=== PATIENT | female | born 1995 | race Hispanic/Latino ===

== ENCOUNTER 2019-01-06 11:47 | Emergency (ER) | payer MEDICAID ==
[2019-01-06 11:47] VITALS: BMI 21.2
[2019-01-06] MEDS ORDERED: Sodium Chloride 0.9% 1,000 ML IV STA (12:41)
[2019-01-06 13:00] LABS: SQUAMOUS EPITHIAL 1 /hpf (0-5); URINE BILIRUBIN NEGATIVE (NEGATIVE); URINE BLOOD LARGE (NEGATIVE); URINE CLARITY CLOUDY (Clear); URINE COLOR AMBER (YELLOW); URINE GLUCOSE (UA) NEG (NEGATIVE); URINE LEUKOCYTE ESTERASE SMALL Leu/uL (Negative); URINE PROTEIN 100 mg/dL (NEGATIVE); URINE UROBILINOGEN 0.2-1.0 mg/dL (0.2-1.0)
[2019-01-06 13:37] LABS: BASO % 0.2 % (0.0-2.0); EOS % 0.1 % (0.0-4.0); LYMPH # 0.2 K/uL (1.0-4.3); LYMPH % 1.9 % (20.0-40.0); MEAN CELL VOLUME 90.6 fl (81.0-99.0); MEAN CORPUSCULAR HGB CONC 33.1 g/dL (33.0-37.0); MONO # 0.6 K/uL (0.0-0.8); MONO % 4.8 % (0.0-10.0); NEUT # 10.9 K/uL (1.8-7.0); PLATELET COUNT 220 K/uL (130-400); WHITE BLOOD COUNT 11.7 K/uL (4.8-10.8)
[2019-01-06 13:52] LABS: ALB/GLOB RATIO 1.7 (1.0-2.1); ALBUMIN 4.2 g/dL (3.5-5.0); ALT/SGPT 30 U/L (9-52); AST/SGOT 22 U/L (14-36); BLOOD UREA NITROGEN 15 mg/dl (7-17); CALCIUM 8.9 mg/dL (8.4-10.2); GFR NON-AFRICAN AMERICAN > 60
[2019-01-06 14:14] LABS: BANDS 1 % (0-2); LARGE PLATELETS PRESENT; LYMPHOCYTE 5 % (20-50); MONOCYTE 4 % (0-10); NEUTROPHIL 90 % (42-75); PLATELET CLUMPS PRESENT; PLATELET ESTIMATE NORMAL (NORMAL); TOTAL CELLS COUNTED 100
--- NOTE | 2019-01-06 14:14 | ED PDOC ---
HPI: SOB/CHF/COPD Time Seen by Provider: 01/06/19 12:12 Chief Complaint (Nursing): Shortness Of Breath Chief Complaint (Provider): Shortness of breath History Per: Patient History/Exam Limitations: no limitations Additional Complaint(s): 23yo female, otherwise well, comes to ER stating at work today, she began to feel fait and shortly after developed shortness of breath, and weakness. She denies any loss of consciounsess and states was able to go to the bathroom and had an episode of large, non-bloody, watery diarrhea. This all occurred at 10am, and since then she has had improvement in her symptoms. No chest pain, shortness of breath or vomiting; patient does report nausea at this time. Of note, pt states her menstruation began today. Past Medical History Reviewed: Historical Data, Nursing Documentation, Vital Signs Vital Signs: Last Vital Signs Temp 98 F 01/06/19 11:56 Pulse 107 H 01/06/19 11:56 Resp 16 01/06/19 11:56 BP 104/68 01/06/19 11:56 Pulse Ox 99 01/06/19 11:56 - Medical History PMH: Anemia, Anxiety, Bipolar Disorder, Depression Denies: Diabetes, Hepatitis, HIV, HTN, Chronic Kidney Disease, Seizures, Sexually Transmitted Disease - Surgical History Surgical History: No Surg Hx - Family History Family History: States: No Known Family Hx - Home Medications Home Medications: Ambulatory Orders Medication Instructions Recorded Azithromycin [Zithromax] 250 mg PO DAILY #4 tab 12/02/18 clonazePAM [Klonopin] 1 mg PO DAILY 12/02/18 - Allergies Allergies/Adverse Reactions: Allergies Allergy/AdvReac Type Severity Reaction Status Date / Time No Known Allergies Allergy Verified 01/06/19 11:55 Review of Systems ROS Statement: Except As Marked, All Systems Reviewed And Found Negative Respiratory: Positive for: Shortness of Breath Gastrointestinal: Positive for: Nausea, Diarrhea (x 1) Physical Exam - Reviewed Nursing Documentation Reviewed: Yes Vital Signs Reviewed: Yes - Physical Exam Appears: Positive for: Non-toxic, No Acute Distress Head Exam: Positive for: ATRAUMATIC, NORMAL INSPECTION, NORMOCEPHALIC Skin: Positive for: Normal Color, Warm, Dry. Negative for: Pallor Eye Exam: Positive for: EOMI, PERRL ENT: Positive for: Other (dry mucus membranes) Neck: Positive for: Normal, Painless ROM, Supple Cardiovascular/Chest: Positive for: Regular Rate, Rhythm. Negative for: T achycardia Respiratory: Positive for: Normal Breath Sounds. Negative for: Respiratory Distress Neurological/Psych: Positive for: Awake, Alert, Normal Tone - Laboratory Results Result Diagrams: 01/06/19 13:20 01/06/19 13:20 Lab Results: Total Bilirubin 0.6 mg/dl (0.2-1.3) 01/06/19 13:20 AST 22 U/L (14-36) 01/06/19 13:20 ALT 30 U/L (9-52) 01/06/19 13:20 Alkaline Phosphatase 51 U/L (38-126) 01/06/19 13:20 Total Protein 6.7 G/DL (6.3-8.2) 01/06/19 13:20 Albumin 4.2 g/dL (3.5-5.0) 01/06/19 13:20 Globulin 2.4 gm/dL (2.2-3.9) 01/06/19 13:20 Albumin/Globulin Ratio 1.7 (1.0-2.1) 01/06/19 13:20 Urine Color Bonny (YELLOW) 01/06/19 12:45 Urine Clarity Cloudy (Clear) 01/06/19 12:45 Urine pH 7.0 (5.0-8.0) 01/06/19 12:45 Ur Specific [place] 1.028 (1.003-1.030) 01/06/19 12:45 Urine Protein 100 mg/dL (NEGATIVE) 01/06/19 12:45 Urine Glucose (UA) Neg mg/dL (NEGATIVE) 01/06/19 12:45 Urine Ketones Negative mg/dL (NEGATIVE) 01/06/19 12:45 Urine Blood Large (NEGATIVE) 01/06/19 12:45 Urine Nitrate Negative (NEGATIVE) 01/06/19 12:45 Urine Bilirubin Negative (NEGATIVE) 01/06/19 12:45 Urine Urobilinogen 0.2-1.0 mg/dL (0.2-1.0) 01/06/19 12:45 Ur Leukocyte Esterase Small Elida/uL (Negative) 01/06/19 12:45 Urine RBC (Auto) 942 /hpf (0-3) H 01/06/19 12:45 Urine Microscopic WBC 18 /hpf (0-5) H 01/06/19 12:45 Ur Squamous Epith Cells 1 /hpf (0-5) 01/06/19 12:45 - ECG ECG: Positive for: Interpreted By Me ECG Rhythm: Positive for: Sinus Rhythm. Negative for: ST/T Changes Rate: 81 O2 Sat by Pulse Oximetry: 99 (RA) Pulse Ox Interpretation: Normal Medical Decision Making Medical Decision Making: Impression: 23yo female with shortness of breath, now resolved Plan: -- Labs -- EKG -- IV Fluids -- Zofran 4mg IV -- Urinalysis On re-evaluation, alert, awake. Reports feeling much better. Advised to f/u with PMD for further evaluation but is to go to ED immediately if symptoms worsen. Scribe Attestation: Documented by Minna Clayton acting as a scribe for ODELL Jimenes. Provider Scribe Attestation: All medical record entries made by the Scribe were at my direction and personally dictated by me. I have reviewed the chart and agree that the record accurately reflects my personal performance of the history, physical exam, medi nora decision making, and the department course for this patient. I have also personally directed, reviewed, and agree with the discharge instructions and disposition. Disposition - Clinical Impression Clinical Impression: Near syncope - Patient ED Disposition Is Patient to be Admitted: No - Disposition Referrals: Laverne Pulido [Outside] Disposition: Routine/Home Disposition Time: 14:45 Condition: STABLE Additional Instructions: FOLLOW UP WITH PMD FOR FURTHER EVALUATION RETURN TO ED IMMEDIATELY IF SYMPTOMS WORSEN APPLE BOO, thank you for letting us take care of you today. Your provider was Arsalan Tan III, DO and you were treated for DIFFICULTY BREATHING. The emergency medical care you received today was directed at your acute symptoms. If you were prescribed any medication, please fill it and take as directed. It may take several days for your symptoms to resolve. Return to the Emergency Department if your symptoms worsen, do not improve, or if you have any other problems. Please contact your doctor or call one of the physicians/clinics you have been referred to that are listed on the Patient Visit Information form that is included in your discharge packet. Bring any paperwork you were given at discharge with you along with any medications you are taking to your follow up visit. Our treatment cannot replace ongoing medical care by a primary care provider outside of the emergency department. Thank you for allowing the [facility] team to be part of your care today. If you had an X-Ray or CT scan: A Radiologist will review the ED reading if any change in treatment is needed we will contact you. If you had a blood, urine, or wound culture: It will take several days for the results, if any change in treatment is needed we will contact you. If you had an STI test: It will take 48 hours for the results. Please call after 1 week if you have not heard back. Instructions: Near Fainting (DC) Forms: eOriginal ([place]an)
[2019-01-06 14:18] LABS: OVALOCYTES SLIGHT; TEARDROP CELLS SLIGHT
[2019-01-06 16:48] VITALS: BP 110/73; RESP 18; TEMP 98.3
[2019-01-06 19:01] VITALS: PULSE 81; O2SAT 99
--- NOTE | 2019-01-06 19:17 | CARD ---
APPROVED REPORT Date of service: 01/06/2019 EKG Measurement Heart [id number] <Conclusion> Normal sinus rhythm Normal ECG
== END 2019-01-06 16:10 | disposition home or self-care (01) ==
LOC: H.ER 11:47
DX: R55 Syncope and collapse (principal); F31.9 Bipolar disorder, unspecified; F41.9 Anxiety disorder, unspecified
CPT/HCPCS: 80053; 81003; 81025; 82948; 84484; 85025; 87086; 93005; 96361; 96374; 99284; J2405; J7030